=== PATIENT | male | born 2000 | race African-American/Black ===

== ENCOUNTER 2022-01-07 14:49 | Emergency (ER) | payer SELFPAY ==
[2022-01-07] MEDS ORDERED: Divalproex Sodium 250 MG (DR) TAB ONE (15:33)
== END 2022-01-07 15:50 | disposition home or self-care (01) ==
LOC: ERS 14:49
DX: R25.1 Tremor, unspecified (principal); T42.6X5A Adverse effect of other antiepileptic and sedative-hypnotic drugs, initial encounter
CPT/HCPCS: 99283

== ENCOUNTER 2022-01-23 12:48 | Emergency (ER) | payer SELFPAY | END 2022-01-23 13:25 | disposition home or self-care (01) | LOC: ERS 12:48 | DX: G40.909 Epilepsy, unspecified, not intractable, without status epilepticus (principal) | CPT/HCPCS: 99283 ==

== ENCOUNTER 2022-03-02 21:35 | Emergency (ER) | payer SELFPAY ==
[2022-03-02] MEDS ORDERED: Ibuprofen 800 MG TAB ONE (22:03)
== END 2022-03-02 22:45 | disposition home or self-care (01) ==
LOC: ERS 21:35
DX: S20.212A Contusion of left front wall of thorax, initial encounter (principal); Y04.0XXA Assault by unarmed brawl or fight, initial encounter
CPT/HCPCS: 71045

== ENCOUNTER 2023-05-06 13:32 | Emergency (ER) | payer OTHER | END 2023-05-06 14:45 | disposition home or self-care (01) | LOC: ERS 13:32 | DX: Z76.0 Encounter for issue of repeat prescription (principal); G31.9 Degenerative disease of nervous system, unspecified | CPT/HCPCS: 99281 ==

== ENCOUNTER 2023-12-21 23:25 | Emergency (ER) | payer OTHER, SELFPAY | END 2023-12-22 00:05 | disposition home or self-care (01) | LOC: ERS 23:25 | DX: R56.9 Unspecified convulsions (principal); Z76.0 Encounter for issue of repeat prescription; Z79.899 Other long term (current) drug therapy | CPT/HCPCS: 99281 ==

== ENCOUNTER 2024-03-14 13:36 | Emergency (ER) | payer OTHER | END 2024-03-14 15:47 | disposition home or self-care (01) | LOC: ERS 13:36 | DX: Z76.0 Encounter for issue of repeat prescription (principal) | CPT/HCPCS: 99281 ==

== ENCOUNTER 2024-03-27 13:53 | Emergency (ER) | payer OTHER ==
[2024-03-27] MEDS ORDERED: Acetaminophen 500 MG TAB ONE (14:31)
== END 2024-03-27 14:36 | disposition home or self-care (01) ==
LOC: ERS 13:53
DX: K03.81 Cracked tooth (principal); K02.9 Dental caries, unspecified
CPT/HCPCS: 99282